=== PATIENT | female | born 1975 | race Caucasian/White ===

== ENCOUNTER 2016-04-27 02:50 | Emergency (ER) | payer BC ==
[2016-04-27] MEDS ORDERED: NORMAL SALINE 1000 ML 1,000 ML IV PRN (03:05)
[2016-04-27 03:50] LABS: ABSOLUTE BASOPHILS # (AUTO) 0.1 10^3/uL (0.0-0.2); ABSOLUTE EOSINOPHILS # (AUTO) 0.2 10^3/uL (0.0-0.6); ABSOLUTE LYMPHOCYTES (AUTO) 1.9 10^3/uL (0.5-4.7); ABSOLUTE MONOCYTES (AUTO) 0.8 10^3/uL (0.1-1.4); ABSOLUTE NEUT (AUTO) 9.1 10^3/uL (1.7-8.2); BASOPHILS % (AUTO) 0.4 % (0-2); EOSINOPHILS % (AUTO) 1.7 % (0-6); HEMATOCRIT 37.1 % (36.0-47.0); HEMOGLOBIN 11.2 g/dL (12.0-15.5); HGB HCT DIFFERENCE -3.5; LYMPHOCYTES % (AUTO) 15.7 % (13-45); MEAN CORPUSCULAR HEMOGLOBIN 19.9 pg (27.0-33.4); MEAN CORPUSCULAR HGB CONC 30.2 g/dL (32.0-36.0); MEAN CORPUSCULAR VOLUME 66 fl (80-97); MONOCYTES % (AUTO) 6.6 % (3-13); RED BLOOD COUNT 5.64 10^6/uL (3.72-5.28); RED CELL DISTRIBUTION WIDTH 19.4 % (11.5-14.0); SEGMENTED NEUTROPHILS % (AUTO) 75.6 % (42-78)
[2016-04-27] MEDS ORDERED: FAMOTIDINE INJ/PF 20 MG/2 ML SDV IV ONE (03:50)
[2016-04-27] MEDS ORDERED: ONDANSETRON HCL INJ/PF 4 MG/2 ML SDV IV ONE (03:50)
--- NOTE | 2016-04-27 03:51 | ER Document Report ---
ED GI/ - General Chief Complaint: Nausea/Vomiting/Diarrhea Stated Complaint: VOMITING,DIARRHEA Time seen by provider: 03:48 Mode of Arrival: Ambulatory Information source: Patient TRAVEL OUTSIDE OF THE [place] IN LAST 30 DAYS: No - HPI Patient complains to provider of: Abdominal pain, Diarrhea, Vomiting Onset: Other - 5 days Timing/Duration: Persistent, Waxing and waning Quality of pain: Achy, Cramping Severity at maximum: Moderate Severity in ED: Moderate Pain Level: 3 Location: Other - diffuse Associated symptoms: Diarrhea, Nausea, Vomiting Exacerbated by: Denies Relieved by: Denies Notes: 04/27/16 03:49 Patient is a 40-year-old female who presents to emergency room complaining of nausea, vomiting and diarrhea with heartburn for the past 5 days, she reports some suprapubic pain as well, no fever, no dysuria or hematuria, no sick contacts, no recent travel, no questionable foods, states that she ate some pizza this evening and was able to keep most of it down - Related Data Allergies/Adverse Reactions: Sulfa (Sulfonamide Antibiotics) Allergy (Verified 12/01/12 05:00) Past Medical History - General Information source: Patient - Social History Smoking Status: Current Every Day Smoker Chew tobacco use (# tins/day): No Frequency of alcohol use: None Drug Abuse: None Family History: Reviewed & Not Pertinent Patient has suicidal ideation: No Patient has homicidal ideation: No Endocrine Medical History: Reports: Hx Diabetes Mellitus Type 2 - NIDDM Renal/ Medical History: Denies: Hx Peritoneal Dialysis Past Surgical History: Reports: Hx Cholecystectomy - Immunizations Hx Diphtheria, Pertussis, Tetanus Vaccination: No Review of Systems - Review of Systems Constitutional: No symptoms reported EENT: No symptoms reported Cardiovascular: No symptoms reported Respiratory: No symptoms reported Gastrointestinal: See HPI Genitourinary: No symptoms reported Female Genitourinary: No symptoms reported Musculoskeletal: No symptoms reported Skin: No symptoms reported Hematologic/Lymphatic: No symptoms reported Neurological/Psychological: No symptoms reported -: Yes All other systems reviewed and negative Physical Exam - Vital signs Vitals: Temp Pulse Resp BP Pulse Ox 98.3 F 102 H 20 145/88 H 97 04/27/16 02:57 04/27/16 02:57 04/27/16 02:57 04/27/16 02:57 04/27/16 02:57 Interpretation: Tachycardic - General General appearance: Appears well, Alert - HEENT Head: Normocephalic, Atraumatic Eyes: Normal Pupils: PERRL - Respiratory Respiratory status: No respiratory distress Chest status: Nontender Breath sounds: Normal Chest palpation: Normal - Cardiovascular Rhythm: Regular Heart sounds: Normal auscultation Murmur: No - Abdominal Inspection: Obese Distension: No distension Bowel sounds: Normal Tenderness: Tender - Suprapubic, and right lower quadrant Organomegaly: No organomegaly - Back Back: Normal, Nontender - Extremities General upper extremity: Normal inspection, Nontender, Normal color, Normal ROM , Normal temperature General lower extremity: Normal inspection, Nontender, Normal color, Normal ROM , Normal temperature, Normal weight bearing. No: Nikhil's sign - Neurological Neuro grossly intact: Yes Cognition: Normal Orientation: AAOx4 [place] Coma Scale Eye Opening: Spontaneous Jerry Coma Scale Verbal: Oriented Jerry Coma Scale Motor: Obeys Commands [place] Coma Scale Total: 15 Speech: Normal Motor strength normal: LUE, RUE, LLE, RLE Sensory: Normal - Psychological Associated symptoms: Normal affect, Normal mood - Skin Skin Temperature: Warm Skin Moisture: Dry Skin Color: Normal Course - Re-evaluation Re-evalutation: 04/27/16 04:08 Patient has leukocytosis, mild right lower quadrant tenderness on evaluation, nausea vomiting and diarrhea 5 days, a CT scan has been ordered to rule out acute appendicitis or other intra-abdominal pathology, I did also discuss lab results with patient including a blood sugar of 250, on my initial evaluation she stated that she no longer wants to see her regular primary care provider because they diagnosed her with diabetes and she does not believe she has diabetes, when I told her her blood sugar was 250 and that I was concerned that she is probably developing diabetes she was adamant that she does not have diabetes and that her elevated blood sugar is because she drank a bunch of sugary drinks today, I advised her that she probably should cut back on the sugary drinks because there is a concern for diabetes since her blood sugar is elevated 04/27/16 05:04 CT results discussed with patient at bedside as well, she was advised to follow- up with primary care provider and [facility] for further evaluation and treatment, she will be discharged with a Zofran dose pack and information for follow-up, advised to return if symptoms worsen, patient acknowledges understanding and agreement with this plan 04/27/16 05:09 Patient was also informed of the cyst noted on her liver on CAT scan, and advised to have it reevaluated by her primary care provider and have imaging repeated in 3-6 months - Vital Signs Vital signs: Temp Pulse Resp BP Pulse Ox 98.3 F 102 H 23 H 148/79 H 97 04/27/16 02:57 04/27/16 02:57 04/27/16 04:01 04/27/16 04:01 04/27/16 04:01 - Laboratory Result Diagrams: 04/27/16 03:15 04/27/16 03:15 Laboratory results interpreted by me: 04/27/16 04/27/16 04/27/16 03:15 03:15 04:35 WBC 12.0 H RBC 5.64 H Hgb 11.2 L MCV 66 L MCH 19.9 L MCHC 30.2 L RDW 19.4 H Absolute Neutrophils 9.1 H Glucose 250 H Urine Glucose (UA) 50 H Ur Leukocyte Esterase LARGE H - Diagnostic Test Radiology reviewed: Image reviewed, Reports reviewed Discharge - Discharge Clinical Impression: Nausea vomiting and diarrhea, Hyperglycemia Ovarian cyst Qualifiers: Laterality: right Qualified Code(s): N83.201 - Unspecified ovarian cyst, right side Condition: Stable Disposition: HOME, SELF-CARE Instructions: Antinausea Medication ([facility]), Diarrhea, Nonspecific ([facility]), Viral Syndrome ([facility]), Vomiting ([facility]), Intravenous (IV) Fluids ([facility]), Ovarian Cyst ([facility] ), Foreign Object in the Ear ([facility]), Hyperglycemia ([facility]) Additional Instructions: Follow up with your primary care provider in one to 2 days. Return to the emergency room immediately if symptoms worsen or any additional concerns.
[2016-04-27 04:02] LABS: ALANINE AMINOTRANSFERASE 31 U/L (9-52); ALBUMIN 3.5 g/dL (3.5-5.0); ALKALINE PHOSPHATASE 88 U/L (38-126); ANION GAP 14 (5-19); ASPARTATE AMINO TRANSFERASE 18 U/L (14-36); BILIRUBIN,TOTAL 0.3 mg/dL (0.2-1.3); BLOOD UREA NITROGEN 11 mg/dL (7-20); CALCIUM 9.1 mg/dL (8.4-10.2); CARBON DIOXIDE 24 mmol/L (22-30); CHLORIDE 103 mmol/L (98-107); CREATININE RESULT 0.61 mg/dL (0.52-1.25); GLUCOSE 250 mg/dL (75-110); SODIUM 140.6 mmol/L (137-145); TOTAL PROTEIN 6.7 g/dL (6.3-8.2)
[2016-04-27 04:52] LABS: APPEARANCE,URINE SLIGHTLY-CLOUDY; BILIRUBIN,URINE NEGATIVE (NEGATIVE); GLUCOSE, URINE 50 mg/dL (NEGATIVE); KETONES,URINE NEGATIVE (NEGATIVE); LEUKOCYTE ESTERASE,URINE LARGE (NEGATIVE); NITRITE,URINE NEGATIVE (NEGATIVE); PROTEIN,URINE NEGATIVE (NEGATIVE); URINE SPECIFIC GRAVITY 1.048; UROBILINOGEN,URINE NEGATIVE mg/dL (<2.0)
[2016-04-27] MEDS ORDERED: ONDANSETRON ODT 4 MG TAB (6 TAB/DSPK) PO PRN (05:03)
[2016-04-27 05:21] VITALS: BP 140/79
== END 2016-04-27 05:21 | disposition home or self-care (01) ==
LOC: ER 02:50
DX: N83.201 Unspecified ovarian cyst, right side (principal); E11.65 Type 2 diabetes mellitus with hyperglycemia; R19.7 Diarrhea, unspecified; R11.2 Nausea with vomiting, unspecified; F17.200 Nicotine dependence, unspecified, uncomplicated; Z90.49 Acquired absence of other specified parts of digestive tract; Z88.2 Allergy status to sulfonamides
CPT/HCPCS: 99284; 96361; 96374; 96375; 36415; 87086; 83690; 84703; 85025; 80053; 81001; 74177; J2405; J7030; S0028

== ENCOUNTER 2016-06-19 22:12 | Emergency (ER) | payer BC ==
[2016-06-19 22:29] VITALS: BP 141/82
--- NOTE | 2016-06-20 01:38 | ER Document Report ---
ED Oral Problem - General Chief Complaint: Toothache Stated Complaint: TOOTH PAIN Time seen by provider: 01:38 Mode of Arrival: Ambulatory Information source: Patient TRAVEL OUTSIDE OF THE [place] IN LAST 30 DAYS: No - HPI Patient complains to provider of: Toothache Onset: Other - 2-3 days Onset: Gradual Quality of pain: Achy Severity: Moderate Pain Level: 3 Context: Fractured tooth Associated symptoms: Dental decay Relieved by: Nothing Similar symptoms previously: Yes Recently seen / treated by doctor/dentist: No Notes: Patient is a 40-year-old female who presents to the emergency room complaining of right-sided dental pain is been going on for the past few days, she denies any injury, no bleeding, no drainage, no fevers, she has a history of poor dentition, has not seen a dentist in quite some time and recently moved to the [facility] for [place], states she has no dental insurance at the present time but should have it in the next few weeks so that she can see a dentist soon - Related Data Allergies/Adverse Reactions: Sulfa (Sulfonamide Antibiotics) Allergy (Verified 12/01/12 05:00) Past Medical History - General Information source: Patient - Social History Smoking Status: Current Every Day Smoker Chew tobacco use (# tins/day): No Frequency of alcohol use: Occasional Drug Abuse: None Family History: Reviewed & Not Pertinent Patient has suicidal ideation: No Patient has homicidal ideation: No Endocrine Medical History: Reports: Hx Diabetes Mellitus Type 2 - NIDDM Renal/ Medical History: Denies: Hx Peritoneal Dialysis Past Surgical History: Reports: Hx Cholecystectomy - Immunizations Hx Diphtheria, Pertussis, Tetanus Vaccination: No Review of Systems - Review of Systems Constitutional: No symptoms reported EENT: See HPI Cardiovascular: No symptoms reported Respiratory: No symptoms reported Gastrointestinal: No symptoms reported Genitourinary: No symptoms reported Female Genitourinary: No symptoms reported Musculoskeletal: No symptoms reported Skin: No symptoms reported Hematologic/Lymphatic: No symptoms reported Neurological/Psychological: No symptoms reported -: Yes All other systems reviewed and negative Physical Exam - Vital signs Vitals: Temp Pulse Resp BP Pulse Ox 97.3 F 100 16 141/82 H 99 06/19/16 22:28 06/19/16 22:28 06/19/16 22:28 06/19/16 22:28 06/19/16 22:28 - Notes Notes: - General General appearance: Appears well, Alert In distress: None - HEENT Head: Normocephalic, Atraumatic Eyes: Normal Conjunctiva: Normal Extraocular movements intact: Yes Eyelashes: Normal Pupils: PERRL - Respiratory Respiratory status: No respiratory distress - Cardiovascular Rhythm: Regular - Abdominal Inspection: Normal - Back Back: Normal - Extremities General upper extremity: Normal inspection General lower extremity: Normal inspection - Neurological Neuro grossly intact: Yes Orientation: AAOx4 [place] Coma Scale Eye Opening: Spontaneous Jerry Coma Scale Verbal: Oriented [place] Coma Scale Motor: Obeys Commands Jerry Coma Scale Total: 15 - Psychological Associated symptoms: Normal affect, Normal mood - Skin Skin Temperature: Warm Skin Moisture: Dry Skin Color: Normal - HEENT Mouth/Lips: Caries, Other - Diffusely poor dentition, on the right posterior mandibular and maxillary gingiva, corresponding to where molar teeth should be present but are not, there is mild erythema and swelling, no drainage, no fluctuance, no bleeding, the teeth just anterior to this area are severely carried Course - Re-evaluation Re-evalutation: 06/20/16 03:14 Patient with dental pain and possible infection, started on antibiotics and provided with pain medication as well as information for follow-up with low- cost dental clinics, advised to return if symptoms worsen, patient acknowledges understanding and agreement with this plan - Vital Signs Vital signs: Temp Pulse Resp BP Pulse Ox 97.3 F 100 16 141/82 H 99 06/19/16 22:28 06/19/16 22:28 06/19/16 22:28 06/19/16 22:28 06/19/16 22:28 Discharge - Discharge Clinical Impression: Toothache, Dental infection Condition: Stable Disposition: HOME, SELF-CARE Instructions: [facility], Oral Narcotic Medication ([facility]), Penicillin V K ([facility]), Toothache ([facility]) Additional Instructions: Follow up with your primary care provider or dental clinic in one to 2 days. Return to the emergency room immediately if symptoms worsen or any additional concerns. Prescriptions: Oxycodone HCl/Acetaminophen [Percocet 5-325 mg Tablet] 1 - 2 tab PO ASDIR PRN # 15 tablet PRN Reason: Penicillin V Potassium [Penicillin Vk 500 mg Tablet] 500 mg PO QID #28 tablet Forms: Return to Work
[2016-06-20] MEDS ORDERED: HYDROCODONE/ACETAMINOPHEN 5-325 MG 6 TAB/DSPK PO PRN (02:09)
[2016-06-20] MEDS ORDERED: PENICILLIN V POTASSIUM 500 MG TABLET PO ONE (02:09)
== END 2016-06-20 02:24 | disposition home or self-care (01) ==
LOC: ER 22:12
DX: K08.89 Other specified disorders of teeth and supporting structures (principal); K04.7 Periapical abscess without sinus; F17.200 Nicotine dependence, unspecified, uncomplicated
CPT/HCPCS: 99282

== ENCOUNTER 2017-02-23 04:16 | Emergency (ER) | payer BC ==
[2017-02-23] MEDS ORDERED: ONDANSETRON HCL INJ/PF 4 MG/2 ML SDV IV ONE (04:50)
[2017-02-23] MEDS ORDERED: NORMAL SALINE 1000 ML 1,000 ML IV ONE (04:50)
--- NOTE | 2017-02-23 04:54 | ER Document Report ---
Doctor's Note Notes: 02/23/17 04:53 Performed a quick triage evaluation the patient. She is a 41-year-old female presents with complaint of vomiting. No abdominal pain. No fevers. No abnormal vaginal discharge or bleeding. She just finished her menstrual period a few days ago. She did have one episode diarrhea. No blood in his stools. No blood or emesis. She had her gallbladder removed at age 19. She does have a history of cysts on her uterus which were removed. She denies any chance to be . She denies any dysuria. No other complaints this time. Vomiting just started an hour and a half ago. Only allergy is to Bactrim. On exam patient has no pain to palpation of her abdomen. She looks well. She says she does feel nauseous. She is not actively vomiting. I have ordered blood and urine tests as well as Zofran and some fluids.
[2017-02-23 05:24] LABS: ABSOLUTE BASOPHILS # (AUTO) 0.1 10^3/uL (0.0-0.2); ABSOLUTE EOSINOPHILS # (AUTO) 0.2 10^3/uL (0.0-0.6); ABSOLUTE LYMPHOCYTES (AUTO) 1.9 10^3/uL (0.5-4.7); ABSOLUTE MONOCYTES (AUTO) 0.7 10^3/uL (0.1-1.4); ABSOLUTE NEUT (AUTO) 12.1 10^3/uL (1.7-8.2); BASOPHILS % (AUTO) 0.5 % (0-2); EOSINOPHILS % (AUTO) 1.3 % (0-6); HEMATOCRIT 37.4 % (36.0-47.0); HEMOGLOBIN 11.8 g/dL (12.0-15.5); LYMPHOCYTES % (AUTO) 12.6 % (13-45); MEAN CORPUSCULAR HGB CONC 31.6 g/dL (32.0-36.0); MEAN CORPUSCULAR VOLUME 67 fl (80-97); MONOCYTES % (AUTO) 4.6 % (3-13); RED BLOOD COUNT 5.62 10^6/uL (3.72-5.28); RED CELL DISTRIBUTION WIDTH 19.3 % (11.5-14.0); WHITE BLOOD COUNT 14.9 10^3/uL (4.0-10.5)
[2017-02-23 05:46] LABS: ALANINE AMINOTRANSFERASE 29 U/L (9-52); ALBUMIN 3.7 g/dL (3.5-5.0); ALKALINE PHOSPHATASE 86 U/L (38-126); ANION GAP 12 (5-19); ASPARTATE AMINO TRANSFERASE 14 U/L (14-36); BILIRUBIN,DIRECT 0.3 mg/dL (0.0-0.4); BILIRUBIN,TOTAL 0.3 mg/dL (0.2-1.3); BLOOD UREA NITROGEN 11 mg/dL (7-20); CARBON DIOXIDE 21 mmol/L (22-30); CHLORIDE 103 mmol/L (98-107); CREATININE RESULT 0.51 mg/dL (0.52-1.25); GLUCOSE 297 mg/dL (75-110); LIPASE 167.8 U/L (23-300); POTASSIUM 4.4 mmol/L (3.6-5.0); SODIUM 136.3 mmol/L (137-145); TOTAL PROTEIN 6.3 g/dL (6.3-8.2)
[2017-02-23 06:22] LABS: APPEARANCE,URINE SLIGHTLY-CLOUDY; BILIRUBIN,URINE NEGATIVE (NEGATIVE); GLUCOSE, URINE >=500 mg/dL (NEGATIVE); KETONES,URINE NEGATIVE (NEGATIVE); LEUKOCYTE ESTERASE,URINE SMALL (NEGATIVE); NITRITE,URINE NEGATIVE (NEGATIVE); PROTEIN,URINE NEGATIVE (NEGATIVE); URINE SPECIFIC GRAVITY 1.018; UROBILINOGEN,URINE NEGATIVE mg/dL (<2.0)
--- NOTE | 2017-02-23 06:26 | ER Document Report ---
ED GI/ - General Chief Complaint: Vomiting Stated Complaint: VOMITING Time Seen by Provider: 02/23/17 04:50 Notes: The patient is a 41-year-old female, PMHx NIDDM, who arrives by ambulance after she had 2 episodes of vomiting this morning. She was given Zofran by EMS and is already starting to feel better. She denies hematemesis, fevers, flank pain , diarrhea, abdominal pain, headache, back pain or urinary symptoms. TRAVEL OUTSIDE OF THE [place] IN LAST 30 DAYS: No - Related Data Allergies/Adverse Reactions: Sulfa (Sulfonamide Antibiotics) Allergy (Verified 12/01/12 05:00) Past Medical History - General Information source: Patient - Social History Smoking Status: Current Every Day Smoker Chew tobacco use (# tins/day): No Frequency of alcohol use: None Drug Abuse: None Family History: Reviewed & Not Pertinent Patient has suicidal ideation: No Patient has homicidal ideation: No Endocrine Medical History: Reports: Hx Diabetes Mellitus Type 2 - NIDDM Renal/ Medical History: Denies: Hx Peritoneal Dialysis Past Surgical History: Reports: Hx Cholecystectomy - Immunizations Hx Diphtheria, Pertussis, Tetanus Vaccination: No Review of Systems - Review of Systems Notes: REVIEW OF SYSTEMS: CONSTITUTIONAL: -fevers, -chills EENT: -eye pain, -difficulty swallowing, -nasal congestion CARDIOVASCULAR:-chest pain, -syncope. RESPIRATORY: -cough, -SOB GASTROINTESTINAL: -abdominal pain, +nausea, +vomiting, -diarrhea GENITOURINARY: -dysuria, -hematuria MUSCULOSKELETAL: -back pain, -neck pain SKIN: -rash or skin lesions. HEMATOLOGIC: -easy bruising or bleeding. LYMPHATIC: -swollen, enlarged glands. NEUROLOGICAL: -altered mental status or loss of consciousness, -headache, - neurologic symptoms PSYCHIATRIC: -anxiety, -depression. ALL OTHER SYSTEMS REVIEWED AND NEGATIVE. Physical Exam - Vital signs Vitals: Temp Pulse Resp BP Pulse Ox 98.4 F 95 18 156/70 H 98 02/23/17 04:35 02/23/17 04:35 02/23/17 04:35 02/23/17 04:35 02/23/17 04:35 - Notes Notes: PHYSICAL EXAMINATION: GENERAL: Well-appearing, well-nourished and in no acute distress. HEAD: Atraumatic, normocephalic. EYES: Pupils equal round and reactive to light, extraocular movements intact, sclera anicteric, conjunctiva are normal. ENT: nares patent, oropharynx clear without exudates. Moist mucous membranes. NECK: Normal range of motion, supple without lymphadenopathy LUNGS: Breath sounds clear to auscultation bilaterally and equal. No wheezes rales or rhonchi. HEART: Regular rate and rhythm without murmurs ABDOMEN: Soft, nontender, normoactive bowel sounds. No guarding, no rebound. No masses appreciated. EXTREMITIES: Normal range of motion, no pitting or edema. No cyanosis. NEUROLOGICAL: Cranial nerves grossly intact. Normal speech, normal gait. Normal sensory and motor exams. PSYCH: Normal mood, normal affect. SKIN: Warm, Dry, normal turgor, no rashes or lesions noted. Course - Re-evaluation Re-evalutation: Patient appears very well and is no longer having any nausea, vomiting or abdominal pain on my evaluation after antiemetics and IV fluids. Labs are unremarkable, other than a slight leukocytosis, which is nonspecific and may be related to her vomiting. Looking through prior records, she is often has a leukocytosis. Patient without any abdominal tenderness. Instructed her to continue her metformin and have her blood sugar rechecked by her primary care physician. - Vital Signs Vital signs: Temp Pulse Resp BP Pulse Ox 98.4 F 88 18 145/86 H 98 02/23/17 04:35 02/23/17 06:53 02/23/17 06:53 02/23/17 06:53 02/23/17 06:53 - Laboratory Result Diagrams: 02/23/17 04:54 02/23/17 04:54 Laboratory results interpreted by me: 02/23/17 02/23/17 02/23/17 04:54 04:54 06:02 WBC 14.9 H RBC 5.62 H Hgb 11.8 L MCV 67 L MCH 21.0 L MCHC 31.6 L RDW 19.3 H Seg Neutrophils % 81.0 H Lymphocytes % 12.6 L Absolute Neutrophils 12.1 H Sodium 136.3 L Carbon Dioxide 21 L Creatinine 0.51 L Glucose 297 H Urine Glucose (UA) >=500 H Ur Leukocyte Esterase SMALL H Discharge - Discharge Clinical Impression: Nausea and vomiting Qualifiers: Vomiting type: unspecified Vomiting Intractability: non-intractable Qualified Code(s): R11.2 - Nausea with vomiting, unspecified Condition: Good Disposition: HOME, SELF-CARE Additional Instructions: VOMITING: Vomiting (or nausea without vomiting) can be caused by many other different problems. It can mean that something's wrong with the stomach, such as ulcers or inflammation or the intestinal tract, such as appendicitis. But it can also be a symptom of a problem that has nothing to do with the stomach or intestines. Vomiting is common with severe headaches, earaches, tonsillitis, and kidney infections, etc. We see it with pneumonia or heart attacks. Drugs can cause nausea and vomiting. Many abdominal problems cause vomiting; for example, gallstones, kidney stones, pancreatitis, and intestinal obstruction ( blocked bowels). In most cases, curing the vomiting depends on fixing the problem that caused it. For temporary relief, we may use an anti-nausea medicine. For home use, we can prescribe suppositories, chewable pills, pills that dissolve in the mouth, or liquid anti-nausea drugs. If the vomiting seems to be caused by a problem in the stomach, acid-suppressing drugs may be prescribed as well. It's important to avoid dehydration. Sip small amounts of clear liquids ( soft drinks, tea, broth, etc) . Try to take fluids frequently even if you are vomiting to prevent dehydration. Take increasing amounts of fluid and when liquids are being consumed successfully, advance to small amounts of bland food (toast, soups, mashed potatoes, etc.) until you are able to resume a regular diet. Avoid aspirin, tobacco, and alcohol. If the vomiting worsens, if the problem that's making you vomit worsens, or if there's evidence of bleeding in the stomach (such as black, tarry stool, or bloody or black vomit), you should return immediately. Also, return if abdominal pain worsens or becomes localized to one area or you develop high fever. Call your doctor if you aren't improved in 24 hours. VIRAL SYNDROME: The physician has diagnosed a viral infection. Viruses not only cause "colds," but can cause many different symptoms including generalized aching, fever, headache, cough, diarrhea, nausea, vomiting, and fatigue. The treatment, for the most part, is simply relief of symptoms. This means that antibiotics are usually not given. Rest, fluids, pain medications and, occasionally, medication for the specific symptoms that are most bothersome will be prescribed. Use good handwashing to avoid passing the virus to others. Shared toys should be cleaned with disinfectant. Clean the toilets, sinks, and counter surfaces in bathrooms. Launder clothing in hot water. Contact the physician if you develop any new or unusual symptoms such as severe headache, stiff neck, high fever, chest pain, productive cough, or shortness of breath. You should be rechecked if you don't see marked improvement within seven to 10 days. INTRAVENOUS (I V) FLUIDS: As part of your care today, you received intravenous (IV) fluids. IV fluids are administered to patients who are dehydrated or to those who have certain chemical (electrolyte) abnormalities that need correcting. ANTINAUSEA MEDICATION: You have been given a medication to suppress nausea and vomiting. This type of medication can be given as a shot, pill, or suppository. It will usually last for many hours. Pills and shots usually last six to eight hours. For the typical illness, only one or two doses of the medication may be necessary. Mild lightheadedness may occur. This type of medicine can cause drowsiness. Do not drive or operate dangerous machinery while under its influence. Do not mix with alcohol. See your doctor at once if you have muscle spasms or tightness, or uncontrollable motions (particularly of the neck, mouth, or jaw). Persistent vomiting or severe lightheadedness should also be evaluated by the physician. FOLLOW-UP CARE: If you have been referred to a physician for follow-up care, call the physician s office for an appointment as you were instructed or within the next two days. If you experience worsening or a significant change in your symptoms, notify the physician immediately or return to the Emergency Department at any time for re-evaluation. Prescriptions: Ondansetron [Zofran Odt 4 mg Tablet] 1 - 2 tab PO Q4H PRN #15 tab.rapdis PRN Reason: For Nausea/Vomiting Forms: Return to Work
[2017-02-23 06:55] VITALS: BP 145/86
== END 2017-02-23 06:53 | disposition home or self-care (01) ==
LOC: ER 04:16
DX: R11.2 Nausea with vomiting, unspecified (principal); D72.829 Elevated white blood cell count, unspecified; E11.9 Type 2 diabetes mellitus without complications; F17.200 Nicotine dependence, unspecified, uncomplicated; Z90.49 Acquired absence of other specified parts of digestive tract; Z88.2 Allergy status to sulfonamides
CPT/HCPCS: 99283; 96361; 96374; 36415; 83690; 85025; 81025; 80053; 81001; J2405; J7030

== ENCOUNTER 2017-03-05 13:52 | Emergency (ER) | payer OTHER, BC ==
[2017-03-05 14:34] VITALS: BP 130/75
--- NOTE | 2017-03-05 15:07 | ER Document Report ---
HPI - HPI Patient complains to provider of: Grease burn at work Onset: Just prior to arrival Onset/Duration: Sudden Pain Level: 2 Context: 41-year-old female with small areas of burn to her right index and right middle finger from grease splashed at work at [employer] prior to arrival. Associated Symptoms: None Exacerbated by: Denies Relieved by: Denies Similar symptoms previously: No Recently seen / treated by doctor: No - ROS ROS below otherwise negative: Yes Systems Reviewed and Negative: Yes All other systems reviewed and negative - REPRODUCTIVE Reproductive: DENIES: : Past Medical History - General Information source: Patient - Social History Smoking Status: Unknown if Ever Smoked Frequency of alcohol use: None Drug Abuse: None Lives with: Family Family History: Reviewed & Not Pertinent Endocrine Medical History: Reports: Hx Diabetes Mellitus Type 2 - NIDDM Renal/ Medical History: Denies: Hx Peritoneal Dialysis Past Surgical History: Reports: Hx Cholecystectomy - Immunizations Hx Diphtheria, Pertussis, Tetanus Vaccination: No Vertical Provider Document - CONSTITUTIONAL Agree With Documented VS: Yes Exam Limitations: No Limitations - INFECTION CONTROL TRAVEL OUTSIDE OF THE [place] IN LAST 30 DAYS: No - HEENT HEENT: Normocephalic - NECK Neck: Supple - RESPIRATORY O2 Sat by Pulse Oximetry: 98 - MUSCULOSKELETAL/EXTREMETIES Musculoskeletal/Extremeties: MAEW, FROM, Tender - Minimal Notes: 1 cm area of mildly pink skin with 2 3 mm areas on the right index dorsum, mild pink half a centimeter area dorsum middle finger over the proximal phalanx., No blisters or skin loss. full Range of motion. - NEURO Level of Consciousness: Awake, Alert, Appropriate Motor/Sensory: No Motor Deficit, No Sensory Deficit - DERM Integumentary: Warm, Dry Course - Vital Signs Vital signs: Temp Pulse Resp BP Pulse Ox 98.4 F 93 16 130/75 H 98 03/05/17 14:32 03/05/17 14:32 03/05/17 14:32 03/05/17 14:32 03/05/17 14:32 Discharge - Discharge Clinical Impression: First degree burn multiple fingers right hand not including thumb Qualifiers: Encounter type: initial encounter Qualified Code(s): T23.131A - Burn of first degree of multiple right fingers (nail), not including thumb, initial encounter Condition: Good Disposition: HOME, SELF-CARE Instructions: Acetaminophen, Antibiotic Ointment Protection ([facility]), [place] ([facility]) , Use of [id number] Ibuprofen ([facility]), Soap Cleansing ([facility]) Additional Instructions: wash with soap and water bacitracin dressing Return to the emergency room for any signs of infection which is redness heat swelling pus Please complete the patient satisfaction survey if you get one, and return it.. If you do not receive a survey, then you can go to the [facility] website, [email or web address] and place your comments about your very good care. Thank you very much. It was a pleasure being your medical provider today. Forms: Return to Work
== END 2017-03-05 15:40 | disposition home or self-care (01) ==
LOC: ER 13:52
DX: T23.131A Burn of first degree of multiple right fingers (nail), not including thumb, initial encounter (principal); X12.XXXA Contact with other hot fluids, initial encounter; Y92.511 Restaurant or cafe as the place of occurrence of the external cause; Y99.0 Civilian activity done for income or pay; E11.9 Type 2 diabetes mellitus without complications
CPT/HCPCS: 99283

== ENCOUNTER 2017-07-04 00:40 | Emergency (ER) | payer BC, OTHER ==
[2017-07-04 00:49] VITALS: BP 123/74
[2017-07-04] MEDS ORDERED: FLUCONAZOLE 100 MG TABLET PO ONE (01:13)
[2017-07-04] MEDS ORDERED: HYDROCODONE/ACETAMINOPHEN 5-325 MG (6 TAB/ER DISP) PO PRN (01:18)
--- NOTE | 2017-07-04 01:19 | ER Document Report ---
HPI - HPI Patient complains to provider of: skin rash Pain Level: 5 Context: Patient is a 41-year-old female that comes emergency from for chief complaint of a rash. Rash is in the groin area on both sides, began 3 weeks ago but has been worsening. Area is itchy and painful with walking. She denies any drainage from the areas. She denies fever chills, nausea or vomiting. She denies any daily medications or medical history, she denies history of diabetes. - REPRODUCTIVE LMP: now Reproductive: DENIES: : Past Medical History - General Information source: Patient - Social History Smoking Status: Current Some Day Smoker Chew tobacco use (# tins/day): No Frequency of alcohol use: Rare Drug Abuse: None Lives with: Family Family History: Reviewed & Not Pertinent Patient has suicidal ideation: No Patient has homicidal ideation: No - Medical History Medical History: Negative Renal/ Medical History: Denies: Hx Peritoneal Dialysis Past Surgical History: Reports: Hx Cholecystectomy - Immunizations Hx Diphtheria, Pertussis, Tetanus Vaccination: No Vertical Provider Document - CONSTITUTIONAL General Appearance: WD/WN, Mild Distress - Patient shifting around uncomfortably - INFECTION CONTROL TRAVEL OUTSIDE OF THE [place] IN LAST 30 DAYS: No - HEENT HEENT: Atraumatic, Normocephalic - NECK Neck: Normal Inspection - RESPIRATORY Respiratory: Breath Sounds Normal, No Respiratory Distress - CARDIOVASCULAR Cardiovascular: Regular Rate, Regular Rhythm - GI/ABDOMEN Gastrointestinal: Abdomen Soft, Abdomen Non-Tender - DERM Integumentary: Rash - Erythematous rash with satellite appearance in both inguinal folds extending close to the genitals, not including the genitals, no areas of induration or fluctuance seen, no vesicles, no bulla. Radha JUSTIN present during exam. Course - Re-evaluation Re-evalutation: Patient admits to frequent urination, has an obvious uncomfortable looking fungal rash on exam, I recommended we evaluate her for diabetes and treat her if necessary, she declined. No evidence of abscess or necrotizing fasciitis. I recommended that this is more difficult to treat and diabetes and if her diabetes is under control she should not develop it as easily. Patient declined. Patient states she would like to be referred to her primary care but she does not want any further evaluation tonight other than treatment for the rash. Given a dose of Diflucan, started on clotrimazole, discussed follow-up and return precautions. Patient states understanding and agreement. - Vital Signs Vital signs: Temp Pulse Resp BP Pulse Ox 98.1 F 103 H 18 123/74 96 07/04/17 00:49 07/04/17 00:49 07/04/17 00:49 07/04/17 00:49 07/04/17 00:49 Discharge - Discharge Clinical Impression: Tinea cruris, Skin rash Disposition: HOME, SELF-CARE Additional Instructions: Your rash is consistent with a fungal rash. You have been treated with an initial dose of Diflucan, recommend that you use the cream as prescribed. In general to avoid fungal skin infections keep skin areas dry. I also recommend that you follow-up with primary care for additional evaluation and management, see referral. Return if you worsen including spreading redness, fever, swelling , or any other concerning or worsening symptoms. Prescriptions: Clotrimazole 15 gm TP ASDIR PRN #2 cream.gm. PRN Reason: Referrals: EVAN MAXWELL MD [ACTIVE STAFF] - Follow up in 1 week ROLAND LLAMAS MD [ACTIVE STAFF] - Follow up in 1 week
== END 2017-07-04 01:41 | disposition home or self-care (01) ==
LOC: ER 00:40
DX: B35.6 Tinea cruris (principal); F17.200 Nicotine dependence, unspecified, uncomplicated
CPT/HCPCS: 99282

== ENCOUNTER 2017-10-20 02:36 | Emergency (ER) | payer BC ==
[2017-10-20] MEDS ORDERED: HYDROMORPHONE HCL INJ/PF 2 MG/ML AMPULE IM ONE (04:28)
[2017-10-20] MEDS ORDERED: LIDOCAINE 1% INJ-PF (10 MG/ML) 30 ML SDV INJ ONE (04:28)
--- NOTE | 2017-10-20 06:21 | ER Document Report ---
ED Skin Rash/Insect Bite/Abscs - General Chief Complaint: Rectal Abscess Stated Complaint: ABCESS Time Seen by Provider: 10/20/17 04:04 Mode of Arrival: Ambulatory Information source: Patient Notes: Patient with complaint of large abscess to her vaginal area for 2-3 days. Denies history of same. Denies history of MRSA. No fevers. TRAVEL OUTSIDE OF THE [place] IN LAST 30 DAYS: No - Related Data Allergies/Adverse Reactions: Sulfa (Sulfonamide Antibiotics) Allergy (Verified 03/05/17 13:54) Past Medical History - General Information source: Patient - Social History Smoking Status: Current Some Day Smoker Chew tobacco use (# tins/day): No Frequency of alcohol use: None Drug Abuse: None Family History: Reviewed & Not Pertinent Patient has suicidal ideation: No Patient has homicidal ideation: No Endocrine Medical History: Reports: Hx Diabetes Mellitus Type 2 - NIDDM Renal/ Medical History: Denies: Hx Peritoneal Dialysis Past Surgical History: Reports: Hx Cholecystectomy - Immunizations Hx Diphtheria, Pertussis, Tetanus Vaccination: No Review of Systems - Review of Systems Constitutional: No symptoms reported EENT: No symptoms reported Cardiovascular: No symptoms reported Respiratory: No symptoms reported Gastrointestinal: No symptoms reported Genitourinary: No symptoms reported Female Genitourinary: No symptoms reported Musculoskeletal: No symptoms reported Skin: See HPI Hematologic/Lymphatic: No symptoms reported Neurological/Psychological: No symptoms reported Physical Exam - Vital signs Vitals: Temp Pulse Resp BP Pulse Ox 98.3 F 143 H 22 H 157/108 H 97 10/20/17 02:41 10/20/17 02:41 10/20/17 02:41 10/20/17 02:41 10/20/17 02:41 - Notes Notes: PHYSICAL EXAMINATION: GENERAL: Well-appearing, well-nourished and in no acute distress. HEAD: Atraumatic, normocephalic. EYES: Pupils equal round and reactive to light, extraocular movements intact, sclera anicteric, conjunctiva are normal. ENT: nares patent, oropharynx clear without exudates. Moist mucous membranes. NECK: Normal range of motion, supple without lymphadenopathy LUNGS: Breath sounds clear to auscultation bilaterally and equal. No wheezes rales or rhonchi. HEART: Regular rate and rhythm without murmurs ABDOMEN: Soft, nontender, normoactive bowel sounds. No guarding, no rebound. No masses appreciated. EXTREMITIES: Normal range of motion, no pitting or edema. No cyanosis. NEUROLOGICAL: No focal neurological deficits. Moves all extremities spontaneously and on command. PSYCH: Normal mood, normal affect. SKIN: Warm, Dry, normal turgor, no rashes or lesions noted. Large labial abscess to left labia majora, indurated erythemous and fluctuant. Course - Re-evaluation Re-evalutation: Large labial abscess incised and drained, patient medicated prior. Patient tolerated well. See procedure notes. - Vital Signs Vital signs: Temp Pulse Resp BP Pulse Ox 98.3 F 89 18 130/70 H 96 10/20/17 02:41 10/20/17 06:49 10/20/17 06:49 10/20/17 06:49 10/20/17 06:49 Procedures - Incision and Drainage left labia Type: Simple Anesthetic type: 1% Lidocaine I&D procedure: Betadine prep applied, Shurclens applied, Iodoform packing placed Incision Method: Incision made by scalpel Discharge - Discharge Clinical Impression: Abscess Condition: Stable Disposition: HOME, SELF-CARE Additional Instructions: ABSCESS: You have an abscess (boil). This a pus-forming infection, usually due to staph. Some boils may be left to drain on their own, but most require lancing. From the time the tender lump first appears, it may be three or four days before the abscess is ready to clay. Local heat and rest help at this stage of treatment. An antibiotic may prevent spread of the infection. Once the abscess is opened, packing may be placed into it. This is done so pus is not sealed inside by premature closure of the cavity. The packing will be removed at your follow-up visit or you may be advised to remove it yourself at home. Sometimes this packing must be replaced a few times during healing. The wound will heal with surprisingly little scar. Depending on the size and location of an abscess, healing can take one to four weeks. You may shower and wash the area around the incision site two or three times a day. Antibiotics may be prescribed, but are usually not necessary after an abscess has been drained. If you develop fever, chills, worsening pain, or increasing swelling in the area, call the doctor or return immediately. POST INCISION AND DRAINAGE: You have had an incision made to allow drainage of an abscess. The incision must remain open so that pus and debris can drain from the wound. If the abscess cavity is large, packing is placed. This keeps the tissues from collapsing and trapping pus inside, while the body shrinks the cavity. The packing may need to be replaced every day or two. The physician will instruct you on the packing. Keep a bulky dressing over the area. Replace it if it becomes saturated with blood or pus. Do not disturb the packing (if present). You may shower and cleanse the area with gentle soap and warm water two or three times a day. Local warmth may be soothing, and may promote faster healing. Return if you develop high fever or chills, or if you note spreading redness, increasing swelling, or increasing tenderness. MRSA CELLULITIS: You have an infection of your skin and underlying soft tissues called cellulitis. This is due to bacteria, which can enter through any break in the skin, or even through an irritated hair follicle. Untreated, cellulitis will usually worsen and may form an abscess which requires draining. Although many bacterial organisms can cause cellulitis and abscess formations, the most likely bacteria is Methicillin-Resistant Staph Aureus, or MRSA for short. Antibiotics are required. Usually, warm packs or warm soaks, and elevation of the infected area are recommended. You should start getting better within 24 to 36 hours. Most infections respond quickly to the right medication. Follow-up care is important, however, to check for abscess (boil) formation, unsuspected foreign body, or resistant infection. If you develop fever, chills, or if the area of infection is becoming rapidly more swollen or painful, call the doctor at once. ORAL NARCOTIC MEDICATION: You have been given a prescription for pain control. This medication is a narcotic. It's best taken with food, as nausea can result if taken on an empty stomach. Don't operate machinery or drive within six hours of taking this medication. Do not combine this medicine with alcohol, or with any medication which can cause sedation (such as cold tablets or sleeping pills) unless you get permission from the physician. Narcotics tend to cause constipation. If possible, drink plenty of fluids and eat a diet high in fiber and fruits. Cephalexin The antibiotic you've been prescribed is a member of the cephalosporin class. This type of antibiotic covers a wide variety of infections, including those of the skin, lungs, and urinary tract. It's useful for staph infections. This antibiotic is slightly similar to the penicillin family. In rare cases , a person who is allergic to penicillin will also be allergic to this medication. If you have had a severe allergic reaction to penicillin, and have not taken this antibiotic since that time, notify your doctor. Antibiotics which cover many germs ("broad spectrum" antibiotics) are more likely to cause diarrhea or "yeast" infections. Women prone to vaginal yeast problems may suffer an attack after taking this antibiotic. In infants, oral thrush (white spots "stuck" on the cheek) or yeast diaper rash may result. See your doctor if these problems occur. Call at once if you develop itching, hives , shortness of breath, or lightheadedness. DOXYCYCLINE: Doxycycline (Vibramycin, Doryx) is an antibiotic of the tetracycline family. This type of drug is useful for infections of the respiratory tract and genital tract, and is sometimes used for intestinal infections. Unlike most tetracyclines, doxycycline can be taken with food. It is longer acting, and (usually) less prone to side effects than regular tetracycline. Tetracycline antibiotics can stain immature teeth and SHOULD NOT BE TAKEN BY CHILDREN, NURSING MOTHERS, OR WOMEN. Tetracyclines can make you more prone to sunburn. Abdominal cramping, nausea, and diarrhea are occasional side effects. Women may experience vaginal yeast infections. Call the doctor at once if you develop hives, itching, shortness of breath , or lightheadedness. FOLLOW-UP CARE: Most simple abscesses will not require a follow up visit. If you had packing placed in the abscess, remove it as instructed by the physician. If you have been referred to a physician for follow-up care, call the physicians office for an appointment as you were instructed or within the next two days. If you experience worsening or a significant change in your symptoms, return to the Emergency Department at any time for re-evaluation. Please remove the packing in 24 hours. If it falls out prior to this that is okay. Please finish all the antibiotics even if your symptoms resolved. Please use Epsom salt soaks. Return to your primary doctor or the emergency department if you develop fever or worsening symptoms. Prescriptions: Cephalexin Monohydrate [Keflex 500 mg Capsule] 500 mg PO Q6H 5 Days #28 capsule Doxycycline Hyclate 100 mg PO BID #14 capsule
[2017-10-20] MEDS ORDERED: DOXYCYCLINE HYCLATE 100 MG TABLET PO ONE (06:27)
[2017-10-20] MEDS ORDERED: HYDROCODONE/ACETAMINOPHEN 5-325 MG (6 TAB/ER DISP) PO PRN (06:27)
[2017-10-20] MEDS ORDERED: CEPHALEXIN 500 MG CAPSULE PO ONE (06:27)
[2017-10-20 06:52] VITALS: BP 130/70
== END 2017-10-20 06:49 | disposition home or self-care (01) ==
LOC: ER 02:36
DX: N76.4 Abscess of vulva (principal); E11.9 Type 2 diabetes mellitus without complications; F17.200 Nicotine dependence, unspecified, uncomplicated; Z88.2 Allergy status to sulfonamides
CPT/HCPCS: 99283; 56405; A6266; J1170

== ENCOUNTER 2018-04-17 01:38 | Emergency (ER) | payer BC ==
[2018-04-17] MEDS ORDERED: LIDOCAINE 1% INJ-PF (10 MG/ML) 30 ML SDV ONE (03:13)
[2018-04-17] MEDS ORDERED: LIDOCAINE 1%/EPINEPHRINE INJ 20 ML VIAL ONE (03:15)
[2018-04-17] MEDS ORDERED: FLUCONAZOLE 100 MG TABLET PO ONE (03:22)
--- NOTE | 2018-04-17 03:26 | ER Document Report ---
ED General - General Chief Complaint: Abscess Stated Complaint: BOIL ON RIGHT THIGH Time Seen by Provider: 04/17/18 02:49 Mode of Arrival: Ambulatory Information source: Patient, [facility] Records Notes: 42-year-old female presents with complaint of right one more note on pain and the treatment of pain. Patient states pain and swelling started 2 days prior to arrival. She describes it as a throbbing pain similar to the abscess that she had on her left thigh a few weeks ago. Patient denies history of MRSA. She denies fever, chills, nausea, vomiting, chest pain, shortness of breath, dysuria, hematuria, vaginal discharge. TRAVEL OUTSIDE OF THE [place] IN LAST 30 DAYS: No - HPI Onset: Other Onset/Duration: Persistent, Worse Quality of pain: Throbbing Severity: Moderate Associated symptoms: denies: Chest pain, Diarrhea, Fever, Nausea, Vomiting, Shortness of breath Exacerbated by: Sitting, Movement Relieved by: Denies Similar symptoms previously: Yes Recently seen / treated by doctor: Yes - Related Data Allergies/Adverse Reactions: Sulfa (Sulfonamide Antibiotics) Allergy (Verified 03/05/17 13:54) Past Medical History - General Information source: Patient, [facility] Records - Social History Smoking Status: Current Every Day Smoker Cigarette use (# per day): Yes - 5 Smoking Education Provided: Yes - Smoking cessation counseling was provided for 4 minutes at the bedside Frequency of alcohol use: None Drug Abuse: None Lives with: Spouse/Significant other Family History: Reviewed & Not Pertinent Patient has suicidal ideation: No Patient has homicidal ideation: No Endocrine Medical History: Reports: Hx Diabetes Mellitus Type 2 - NIDDM Renal/ Medical History: Denies: Hx Peritoneal Dialysis Past Surgical History: Reports: Hx Cholecystectomy - Immunizations Hx Diphtheria, Pertussis, Tetanus Vaccination: No Review of Systems - Review of Systems Notes: REVIEW OF SYSTEMS: CONSTITUTIONAL : Denies fever, chills, or sweats. Denies recent illness. Denies weight loss, recent hospitalizations. EENT: Denies visual changes, eye pain. Denies sore throat, oral lesions, difficulty swallowing. CARDIOVASCULAR: Denies chest pain. Denies palpitations. Denies lower extremity edema. RESPIRATORY: Denies cough. Denies shortness of breath, wheezing. GASTROINTESTINAL: Denies abdominal pain or distention. Denies nausea, vomiting, or diarrhea. Denies blood in vomitus, stools, or per rectum. Denies black, tarry stools. Denies constipation. GENITOURINARY: Denies difficulty urinating, painful urination, frequency, blood in urine, or vaginal discharge. MUSCULOSKELETAL: Denies back or neck pain or stiffness. Denies joint pain or swelling. SKIN: + Abscess right inner thigh HEMATOLOGIC : Denies easy bruising or bleeding. LYMPHATIC: Denies swollen glands. NEUROLOGICAL: Denies confusion or altered mental status. Denies loss of consciousness. Denies dizziness or lightheadedness. Denies headache. Denies weakness or paralysis. Denies problems difficulty with ambulation, slurred speech. Denies sensory loss, numbness, or tingling. Denies seizures. PSYCHIATRIC: Denies anxiety or stress. Denies depression, suicidal ideation, or homicidal ideation. Denies visual or auditory hallucinations. Physical Exam - Vital signs Vitals: Temp Pulse Resp BP Pulse Ox 98.6 F 122 H 24 H 147/92 H 96 04/17/18 01:40 04/17/18 01:40 04/17/18 01:40 04/17/18 01:40 04/17/18 01:40 - Notes Notes: PHYSICAL EXAMINATION: GENERAL: Well-appearing, well-nourished and in no acute distress. HEAD: Atraumatic, normocephalic. EYES: Pupils equal round and reactive to light, extraocular movements intact, conjunctiva are normal. ENT: Nares patent, oropharynx clear without exudates. Moist mucous membranes. NECK: Normal range of motion, supple without lymphadenopathy LUNGS: Breath sounds clear to auscultation bilaterally and equal. No wheezes rales or rhonchi. HEART: Regular rate and rhythm without murmurs ABDOMEN: Soft, nontender, nondistended abdomen. No guarding, no rebound. No masses appreciated. Female : Significant fungal rash of the inguinal areas and labia. Musculoskeletal: Normal range of motion, no pitting or edema. No cyanosis. NEUROLOGICAL: Cranial nerves grossly intact. Normal speech, normal gait. Normal sensory, motor exams PSYCH: Normal mood, normal affect. SKIN: A 4 x 4 area of fluctuance, induration and erythema of the right inner thigh. Course - Re-evaluation Re-evalutation: 04/17/18 18:38 42-year-old female presents with an abscess to her right inner thigh. I&D was performed with moderate amount of purulent drainage expressed. Because of p marquis's severe vulvovaginitis, obvious yeast infection patient was given Diflucan, Monistat and Keflex. Patient was evaluated and treated as appropriate for the patient's presenting symptoms and complaint, with consideration of any critical or life threatening conditions that may be associated with their obtained history and exam as noted above. All results were discussed with patient and her patient provided the opportunity to ask questions, and express concerns. Patient was educated on treatments based on their presumed diagnosis as noted above. At this time we will discharge the patient with return precautions and follow-up recommendations. Verbal discharge instructions given a the bedside. Medication warnings reviewed. Patient is in agreement with this plan and has verbalized understanding of return precautions. After careful consideration I feel that that patient can be safely discharged from the emergency department, they were advised to followup with a primary car e physician in 2-3 days. Dictation on this chart was performed using voice recognition software and may result in unintended grammatical, spelling, syntax or errors. - Vital Signs Vital signs: Temp Pulse Resp BP Pulse Ox 98.2 F 107 H 19 152/80 H 94 04/17/18 03:55 04/17/18 03:55 04/17/18 03:55 04/17/18 03:55 04/17/18 03:55 Procedures - Incision and Drainage Right Thigh Time completed: 18:39 Type: Simple Anesthetic type: 1% Lidocaine w/epi mL's of anesthetic: 5 Blade size: 11 I&D procedure: Betadine prep applied, Shurclens applied Incision Method: Incision made with needle Amount/type of drainage: 6 cc of purulent drainage Discharge - Discharge Clinical Impression: Abscess of right thigh, Vaginal candidiasis, Fungal rash of trunk Condition: Good Disposition: HOME, SELF-CARE Instructions: Abscess ([facility]), Post Incision and Drainage, Vaginitis ([facility]) Additional Instructions: You were seen for an abscess that required drainage. Please clean this area with soap and water twice daily and apply a topical antibiotic. Dress the area after each cleaning. Please return if you develop fever, vomiting, the pain at the site worsens, you notice spreading redness from the area, or you have any other symptoms that are concerning to you. Prescriptions: Cephalexin Monohydrate [Keflex 500 mg Capsule] 500 mg PO BID 5 Days #10 capsule Miconazole Nitrate [Monistat-3 Supp.vag (3 Supp/Box)] 200 mg VG DAILY 3 Days #1 box Forms: Elevated Blood Pressure
[2018-04-17 04:00] VITALS: BP 152/80
== END 2018-04-17 04:00 | disposition home or self-care (01) ==
LOC: ER 01:38
PROC: 0H9HXZZ Drainage of Right Upper Leg Skin, External Approach (ICD-10-PCS; principal; 2018-04-17)
DX: L02.415 Cutaneous abscess of right lower limb (principal); B37.3 Candidiasis of vulva and vagina; B36.9 Superficial mycosis, unspecified; F17.210 Nicotine dependence, cigarettes, uncomplicated; E11.9 Type 2 diabetes mellitus without complications
CPT/HCPCS: 99406; 99283; 10060; J3490

== ENCOUNTER 2019-06-06 21:14 | Emergency (ER) | payer OTHER, BC ==
[2019-06-07] MEDS ORDERED: IBUPROFEN 800 MG TABLET PO ONE (00:53)
[2019-06-07] MEDS ORDERED: BACLOFEN 10 MG TABLET PO ONE (00:54)
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
[2019-06-07 01:31] VITALS: BP 166/77
== END 2019-06-07 01:05 | disposition home or self-care (01) ==
LOC: ER 21:14
DX: M54.5 Low back pain (principal); V49.40XA Driver injured in collision with unspecified motor vehicles in traffic accident, initial encounter; F17.200 Nicotine dependence, unspecified, uncomplicated; E11.9 Type 2 diabetes mellitus without complications; Z88.2 Allergy status to sulfonamides
CPT/HCPCS: 99283